=== PATIENT | female | born 1945 | race Caucasian/White ===

== ENCOUNTER 2019-09-12 23:03 | Inpatient (IN) | payer OTHER, MEDICARE ==
--- NOTE | 2019-09-12 23:15 | PDOC ---
History of Present Illness - General Chief Complaint: Shortness of Breath Stated Complaint: SOB Time Seen by Provider: 09/12/19 23:09 History Source: Patient Exam Limitations: No Limitations - History of Present Illness Initial Comments: 09/12/19 23:32 This is a 74-year-old female who comes in complaining of acute exacerbation of her COPD. Patient has a [id number] history of smoking quit 13 years ago. Patient has history of type 2 diabetes hypertension, high cholesterol. Patient states she has had some mild test numbness in her chest but no chest pain. Patient said she recently had a stress test that was normal. Patient is visiting from out of town and did not bring her nebulizer so has been unable to take her nebulizer treatments which she would normally take. Patient denies any productive cough. Patient said her cough is dry. Patient denies any fevers or chills. Patient is not currently on any steroids other than the Spiriva. Allergies: as per nursing notes Past Medical History: As per HPI Social history: Lives with family. + smoking as per HPI. No alcohol. No illicit drugs. Surgical history: Back surgery General: No fevers or chills, no weakness, no weight loss HEENT: No change in vision. No sore throat,. No ear pain CardioVascular: + chest discomfort. No shortness of breath Respiratory:+ cough, + wheezing. Gastrointestinal: no nausea, vomiting, diarrhea or constipation, No rectal bleeding Genitourinary: No dysuria, hematuria, or frequency Musculoskeletal: No joint or muscle pain or swelling Neurologic: No headache, vertigo, dizziness or loss of consciousness Psychiatric: nor depression Skin: No rashes or easy bruising Endocrine: no increased thirst or abnormal weight change Allergic: no skin or latex allergy All other systems reviewed and normal Exam: General: Well-nourished well-developed individual, no acute distress HEENT: Throat: Normal, tonsils normal, no erythema or exudate Neck: Supple, no meningeal signs, no lymphadenopathy Eyes::Pupils equal reactive and round, extraocular motion intact Chest: Nontender to palpation Cardiac: S1-S2 normal, regular rate and rhythm, no murmurs rubs or gallops Respiratory: Tachypnea with decreased breath sounds bilateral and mild expiratory wheezing in all meza Abdomen: Soft, nondistended, normal bowel sounds, there is no tenderness on palpation diffusely Extremities: Warm, dry, no cyanosis, clubbing, or edema Skin: No rashes Neuro: Alert and oriented x3, CN II - XII intact, nonfocal exam with normal strength, normal sensation, normal reflexes, normal gait, Psych: Normal mood and affect Assessment and plan: This is a 74-year-old female with acute exacerbation of her COPD. Patient does not have her medications with her as she is visiting from out of town. Patient is noted to be tachypneic with decreased breath sound and some expiratory wheezing. Patient given Solu-Medrol and a DuoNeb. Work-up initiated including CBC, comp, cardiac enzymes, UA, EKG, chest x-ray. 09/13/19 02:49 Patient's blood work was unremarkable. Patient EKG showed normal sinus rhythm no acute ST-T wave changes normal EKG Patient's BNP however was mildly elevated at 550 Patient has some improvement but still some dyspnea post DuoNeb and steroids We will admit patient overnight for additional treatment and to rule her out. Past History - Past Medical History Allergies/Adverse Reactions: Allergies Allergy/AdvReac Type Severity Reaction Status Date / Time No Known Allergies Allergy Unverified 09/12/19 23:19 Home Medications: Ambulatory Orders Albuterol 2.5/Ipratropium 0.5 [Duoneb -] 1 neb IH QID PRN 09/12/19 Albuterol Sulfate [Albuterol Sulfate Hfa] 2 puff IH PRN PRN 09/12/19 Budesonide/Formeterol Fumarate [SYMBICORT 160/4.5mcg -] 2 inh PO BID 09/12/19 Calcium Citrate [Calcitrate] 400 mg PO DAILY 09/12/19 Cholecalciferol (Vitamin D3) [Vitamin D3 -] 1,000 unit PO DAILY 09/12/19 Citalopram Hydrobromide [Citalopram HBr] 20 mg PO DAILY 09/12/19 Cyanocobalamin [Vitamin B12 -] 1,000 mcg PO DAILY 09/12/19 Ferrous Sulfate [Iron] 325 mg PO DAILY 09/12/19 Liraglutide [Victoza -] 0.6 mg SQ DAILY@0700 09/12/19 Lisinopril 20 mg PO DAILY 09/12/19 Multivitamins [Tab-A-Vit -] 1 tab PO DAILY 09/12/19 Omeprazole 20 mg PO DAILY 09/12/19 Propranolol HCl [Innopran Xl] 120 mg PO DAILY 09/12/19 Ropinirole HCl 1 mg PO BID 09/12/19 Rosuvastatin [Crestor -] 20 mg PO DAILY 09/12/19 Tiotropium [place] [Spiriva] 1 inh IH DAILY 09/12/19 metFORMIN HCL [Metformin HCl ER] 500 mg PO DAILY 09/12/19 COPD: Yes Diabetes: Yes HTN: Yes Hypercholesterolemia: Yes Other medical history: CHRONIC BACK PAIN - Psycho Social/Smoking Cessation Hx Smoking History: Former smoker Have you smoked in the past 12 months: No Information on smoking cessation initiated: No *Physical Exam - Vital Signs Last Vital Signs Temp Pulse Resp BP Pulse Ox 98 F 90 20 175/80 H 96 09/12/19 23:09 09/12/19 23:09 09/12/19 23:09 09/12/19 23:09 09/12/19 23:09 ED Treatment Course - LABORATORY CBC & Chemistry Diagram: 09/13/19 01:03 09/13/19 01:03 Discharge - Discharge Information Problems reviewed: Yes Clinical Impression/Diagnosis: COPD exacerbation Condition: Stable - Admission Yes - Follow up/Referral Referrals: ON STAFF,NOT [Primary Care Provider] - - Patient Discharge Instructions - Post Discharge Activity
[2019-09-12] MEDS ORDERED: methylPREDNISolone NA SUCC 125 MG/2 ML VIAL IVPUSH ONE (23:30)
[2019-09-12] MEDS ORDERED: ALBUTEROL SO4 2.5/IPRATROPIUM 0.5 INH SOL 3 ML VIAL.NEB. NEB ONE ×2 (23:30→23:33)
[2019-09-12] MEDS ORDERED: methylPREDNISolone NA SUCC 125 MG/2 ML VIAL ONE (23:33)
[2019-09-13 01:15] LABS: BASO % 0.9 % (0-2.0); EOS % 3.4 % (0-4.5); HEMATOCRIT 34.6 % (32.4-45.2); HEMOGLOBIN 11.6 GM/dL (10.7-15.3); LYMPH % 23.1 % (8-40); MCH 28.4 pg (25.7-33.7); MCHC 33.4 g/dl (32.0-36.0); MEAN CELL VOLUME 85.1 fl (80-96); MEAN PLT VOLUME 8.8 fl (7.5-11.1); MONO % 6.8 % (3.8-10.2); NEUT % 65.8 % (42.8-82.8); PLATELET COUNT 173 K/MM3 (134-434); RBC 4.07 M/mm3 (3.60-5.2); RDW 15.7 % (11.6-15.6); WHITE BLOOD COUNT 6.2 K/mm3 (4.0-10.0)
[2019-09-13 01:40] LABS: ALBUMIN 3.5 g/dl (3.4-5.0); BILIRUBIN,TOTAL 1.1 mg/dL (0.2-1); BLOOD UREA NITROGEN 15.4 mg/dL (7-18); CALCIUM 9.2 mg/dL (8.5-10.1); CREATININE 1.2 mg/dL (0.55-1.3); POTASSIUM 4.2 mmol/L (3.5-5.1); TOT PROT 6.4 g/dl (6.4-8.2)
[2019-09-13 05:00] LABS: PH,URINE 6.5 (5.0-8.0); URINE APPEARANCE CLEAR; URINE BILIRUBIN NEGATIVE (NEGATIVE); URINE COLOR YELLOW; URINE GLUCOSE (UA) NEGATIVE (NEGATIVE); URINE KETONE TRACE (NEGATIVE); URINE LEUK ESTERASE NEGATIVE (NEGATIVE); URINE NITRITE NEGATIVE (NEGATIVE); URINE PROTEIN NEGATIVE (NEGATIVE)
[2019-09-13 07:09] VITALS: BMI 34.9
[2019-09-13] MEDS ORDERED: PATIENT'S OWN MEDICATION (NON-FORMULARY) (Omeprazole 20 MG) PO SCH (10:00)
[2019-09-13] MEDS ORDERED: PROPRANOLOL HCL 120 MG PO SCH (10:00)
[2019-09-13] MEDS ORDERED: PT OWN MED DRAWER 7, Y5N ONE (10:56)
--- NOTE | 2019-09-13 10:59 | HP ---
CHIEF COMPLAINT: SOB PCP: Dr. Covarrubias, steffany Pul Dr. Romaine Alonso HISTORY OF PRESENT ILLNESS: This is a 74-year-old female with a medical history of COPD ( not on oxygen at home), ex- smoker,type 2 diabetes, hypertension, high cholesterol, depression, anemia,HTN,GERD,HDL, restless leg syndrome,essential tremors and obesity, who presents to ER; c/o increasing sob and constant dry cough for one day, no relief with home dose inhalers. Pt denies fever, chills, weakness, cp, palpitations, abdominal pain, N/V/D or urinary symptoms. Pt also reports chest tightness with cough, denies chest pain, diaphoresis or palpitations( recent negative stress test). Patient is visiting from out of town and did not bring her nebulizer so has been unable to take her nebulizer treatments which she would normally take. ER course was notable for: (1)BNP 550, N 138, K 4.2 (2)wbc 6.2,H/H 11.6,Hct 34.6, afebrile (3)CXR: No evidence of pneumonia Recent Travel: [place] in June 2019 PAST MEDICAL HISTORY: As mentioned above PAST SURGICAL HISTORY: Tonsillectomy as a child Back sx for ruptured disc in 1989 Lumpectomy in 2014 for spinal stenosis Social History: Smoking:ex smoker, quit over over 14 yrs ago, smoked over pack a day for 40 yrs Alcohol:None Drugs: None Allergies No Known Allergies Allergy (Unverified 09/12/19 23:19) HOME MEDICATIONS: Home Medications Medication ASA 81mg daily Instructions Recorded Albuterol 2.5/Ipratropium 0.5 1 neb IH QID PRN 09/12/19 [Duoneb -] Albuterol Sulfate [Albuterol 2 puff IH PRN PRN 09/12/19 Sulfate Hfa] Budesonide/Formeterol Fumarate 2 inh PO BID 09/12/19 [SYMBICORT 160/4.5mcg -] Calcium Citrate [Calcitrate] 400 mg PO DAILY 09/12/19 Cholecalciferol (Vitamin D3) 1,000 unit PO DAILY 09/12/19 [Vitamin D3 -] Citalopram Hydrobromide 20 mg PO DAILY 09/12/19 [Citalopram HBr] Cyanocobalamin [Vitamin B12 -] 1,000 mcg PO DAILY 09/12/19 Ferrous Sulfate [Iron] 325 mg PO DAILY 09/12/19 Liraglutide [Victoza -] 0.6 mg SQ DAILY@0700 09/12/19 Lisinopril 20 mg PO DAILY 09/12/19 Multivitamins [Tab-A-Vit -] 1 tab PO DAILY 09/12/19 Omeprazole 20 mg PO DAILY 09/12/19 Propranolol HCl [Innopran Xl] 120 mg PO DAILY 09/12/19 Ropinirole HCl 1 mg PO BID 09/12/19 Rosuvastatin [Crestor -] 20 mg PO HS 09/12/19 Tiotropium [place] [Spiriva] 1 inh IH DAILY 09/12/19 metFORMIN HCL [Metformin HCl ER]1 1000 mg bid 09/12/19 REVIEW OF SYSTEMS CONSTITUTIONAL: Absent: fever, chills, diaphoresis, generalized weakness, malaise, loss of appetite, weight change HEENT: Absent: rhinorrhea, nasal congestion, throat pain, throat swelling, difficulty swallowing, mouth swelling, ear pain, eye pain, visual changes CARDIOVASCULAR: Absent: chest pain, syncope, palpitations, irregular heart rate, lightheadedness , peripheral edema RESPIRATORY: cough cough, shortness of breath, dyspnea with exertion, Absent:orthopnea, wheezing, stridor, hemoptysis GASTROINTESTINAL: Absent: abdominal pain, abdominal distension, nausea, vomiting, diarrhea, constipation, melena, hematochezia GENITOURINARY: Absent: dysuria, frequency, urgency, hesitancy, hematuria, flank pain, genital pain MUSCULOSKELETAL: Absent: myalgia, arthralgia, joint swelling, back pain, neck pain SKIN: Absent: rash, itching, pallor HEMATOLOGIC/IMMUNOLOGIC: Absent: easy bleeding, easy bruising, lymphadenopathy, frequent infections ENDOCRINE: Absent: unexplained weight gain, unexplained weight loss, heat intolerance, cold intolerance NEUROLOGIC: Absent: headache, focal weakness or paresthesias, dizziness, unsteady gait, seizure, mental status changes, bladder or bowel incontinence PSYCHIATRIC: Absent: anxiety, depression, suicidal or homicidal ideation, hallucinations. PHYSICAL EXAMINATION Vital Signs - 24 hr 09/12/19 09/13/19 09/13/19 23:09 02:21 03:17 Temperature 98 F 98.4 F 97.6 F Pulse Rate 90 77 Pulse Rate [ 70 Radial] Respiratory 20 18 19 Rate Blood Pressure 175/80 H 161/69 Blood Pressure 152/56 L [Arm] O2 Sat by Pulse 96 96 95 Oximetry (%) 09/13/19 09/13/19 09/13/19 06:34 07:08 07:10 Temperature 98.1 F 97.6 F Pulse Rate 77 Pulse Rate [ 67 Radial] Respiratory 18 20 Rate Blood Pressure 161/69 Blood Pressure 157/58 L [Arm] O2 Sat by Pulse 95 95 Oximetry (%) 09/13/19 09:00 Temperature Pulse Rate Pulse Rate [ Radial] Respiratory 20 Rate Blood Pressure Blood Pressure [Arm] O2 Sat by Pulse 95 Oximetry (%) GENERAL: Awake, alert, and fully oriented, in no acute distress. HEAD: Normal with no signs of trauma. EYES: Pupils equal, round and reactive to light, extraocular movements intact, sclera anicteric, conjunctiva clear. No lid lag. EARS, NOSE, THROAT: Ears normal, nares patent, oropharynx clear without exudates. Moist mucous membranes. NECK: Normal range of motion, supple without lymphadenopathy, JVD, or masses. LUNGS: Breath sounds equal, clear to auscultation bilaterally. No wheezes, and no crackles. No accessory muscle use. HEART: Regular rate and rhythm, normal S1 and S2 without murmur, rub or gallop. ABDOMEN: Soft, nontender, not distended, normoactive bowel sounds, no guarding, no rebound, no masses. No hepatomegaly or splenomegaly. MUSCULOSKELETAL: Normal range of motion at all joints. No bony deformities or tenderness. No CVA tenderness. UPPER EXTREMITIES: 2+ pulses, warm, well-perfused. No cyanosis. No clubbing. No peripheral edema. LOWER EXTREMITIES: 2+ pulses, warm, well-perfused. No calf tenderness. No peripheral edema. NEUROLOGICAL: Cranial nerves II-XII intact. Normal speech. Normal gait. PSYCHIATRIC: Cooperative. Good eye contact. Appropriate mood and affect. SKIN: Warm, dry, normal turgor, no rashes or lesions noted, normal capillary refill. Laboratory Results - last 24 hr 09/13/19 09/13/19 09/13/19 01:03 01:03 01:03 WBC 6.2 RBC 4.07 Hgb 11.6 Hct 34.6 MCV 85.1 MCH 28.4 MCHC 33.4 RDW 15.7 H Plt Count 173 MPV 8.8 Absolute Neuts (auto) 4.1 Neutrophils % 65.8 Lymphocytes % 23.1 Monocytes % 6.8 Eosinophils % 3.4 Basophils % 0.9 Nucleated RBC % 0 Sodium 138 Potassium 4.2 Chloride 107 Carbon Dioxide 23 Anion Gap 8 BUN 15.4 Creatinine 1.2 Est GFR (CKD-EPI)AfAm 51.92 Est GFR (CKD-EPI)NonAf 44.80 Random Glucose 194 H Calcium 9.2 Total Bilirubin 1.1 H AST 18 ALT 23 Alkaline Phosphatase 84 Creatine Kinase 111 Troponin I 0.02 B-Natriuretic Peptide 550.9 H Total Protein 6.4 Albumin 3.5 Urine Color Urine Appearance Urine pH Ur Specific [place] Urine Protein Urine Glucose (UA) Urine Ketones Urine Blood Urine Nitrite Urine Bilirubin Urine Urobilinogen Ur Leukocyte Esterase 09/13/19 09/13/19 09/13/19 03:30 03:30 07:35 WBC RBC Hgb Hct MCV MCH MCHC RDW Plt Count MPV Absolute Neuts (auto) Neutrophils % Lymphocytes % Monocytes % Eosinophils % Basophils % Nucleated RBC % Sodium Potassium Chloride Carbon Dioxide Anion Gap BUN Creatinine Est GFR (CKD-EPI)AfAm Est GFR (CKD-EPI)NonAf Random Glucose Calcium Total Bilirubin AST ALT Alkaline Phosphatase Creatine Kinase Troponin I 0.03 B-Natriuretic Peptide Total Protein Albumin Urine Color Cancelled Yellow Urine Appearance Cancelled Clear Urine pH Cancelled 6.5 Ur Specific [place] 1.017 Urine Protein Cancelled Negative Urine Glucose (UA) Cancelled Negative Urine Ketones Cancelled Trace H Urine Blood Cancelled Negative Urine Nitrite Cancelled Negative Urine Bilirubin Cancelled Negative Urine Urobilinogen Cancelled 1.0 Ur Leukocyte Esterase Cancelled Negative ASSESSMENT/PLAN: This is a 74-year-old female with a medical history of COPD ( not on oxygen at home), ex- smoker,type 2 diabetes, hypertension, high cholesterol, depression, anemia,HTN,GERD,HDL, restless leg syndrome.essential tremors, and obesity, who presents to ER c/o increasing sob and constant dry cough, admitted with COPD exacerbation. * COPD exacerbation - sp Solumedrol and neb tx in ER - O2 jermaine stable - will cont on Solumedrol,Neb [place] and home dose inhalers - will monitor pulse ox - cxr- No acute ;boo pathology - encouraged to use IS - will hold off pul consult since pt condition improved * Chest tightness - resolved now - likely due to COPD exacerbation - trop neg - BNP 550.9 - EKG: SR, no acute ST changes - states had stress 3 months ago and echo about a year ago reported normal - cxr: No evidence of congestion or fluid overload - denies hx of CHF * HTN - will cont on home dose Lisinopril * HDL - on Crestor * Diabetes - will hold off home dose Metformin - will start on Insulin sliding scale - FS AC& HS - will check Hgb Alc * Depression - will cont on home dose Celexa * Anemia - on Fe pills * GERD - on PPI * Essential tremors -on Inderal * Restless leg leg syndrome On Requip * Obesity - weight loss encouraged * VTE : Heparin SQ and SCD's * F/E/N: Diabetic/ Heart healthy Diet Replace electrolytes as needed. Visit type - Emergency Visit Emergency Visit: Yes ED Registration Date: 09/13/19 Care time: The patient presented to the Emergency Department on the above date and was hospitalized for further evaluation of their emergent condition. - New Patient This patient is new to me today: Yes Date on this admission: 09/13/19 - Critical Care Critical Care patient: No
[2019-09-13] MEDS: rOPINIRole HCL 1 MG TABLET (FP) PO SCH ×2 (11:02→21:24)
[2019-09-13] MEDS: methylPREDNISolone NA SUCC 40 MG/1 ML VIAL IVPUSH SCH ×2 (11:02→17:06)
[2019-09-13] MEDS: CITALOPRAM HYDROBROMIDE 20 MG TABLET (FP) PO SCH (11:03)
[2019-09-13] MEDS: PANTOPRAZOLE 20 MG TABLET (FP) PO SCH (11:03)
[2019-09-13] MEDS: CHOLECALCIFEROL (VIT D3) 1,000 UNIT (25 MCG) TABLET PO SCH (11:03)
[2019-09-13] MEDS: MULTIVITAMINS (DAILY MVI) TABLET (FP) PO SCH (11:03)
[2019-09-13] MEDS: HEPARIN NA (PORCINE) 5,000 UNITS/ML 1ML VIAL SQ SCH ×2 (11:04→21:24)
[2019-09-13] MEDS: LISINOPRIL 20 MG TABLET (FP) PO SCH (11:04)
[2019-09-13] MEDS: INSULIN SLIDING SCALE (NOVOLOG) 1 VIAL SQ SCH ×3 (12:12→21:26)
[2019-09-13] MEDS: ASPIRIN 81 MG CHEWABLE TABLETS PO SCH (12:13)
[2019-09-13] MEDS: TIOTROPIUM BROMIDE 2.5 MCG (SPIRIVA) RESPIMAT INHALER IH SCH (12:13)
[2019-09-13] MEDS: BUDESONIDE/FORMETEROL FUMARATE 160/4.5 mcg INHALER IH SCH ×2 (12:13→21:23)
--- NOTE | 2019-09-13 16:00 | CON.PULM ---
Consult Consult Specialty:: PULM/CCM Referred by:: Hospitalist Reason for Consultation:: SOB - History of Present Illness Chief Complaint: SOB History of Present Illness: 74 F, COPD due to previous smoking (quit about 14 years ago), not O2 dependent , known OSAS on CPAP (she thinks 15 cm H2O), has had LDCT screening in [place] , DM, hypertension, high cholesterol, depression, anemia, HTN, GERD, HDL, restless leg syndrome, essential tremors, and obesity. Visiting for the holidays and developed progressive SOB and cough. No fever or chills. No hemoptysis or night sweats. - History Source History Provided By: Patient Limitations to Obtaining History: No Limitations - Past Medical History Pulmonary: Yes: Bronchitis, COPD, Pneumonia, Sleep Apnea. No: Asthma, Cancer, O2 Dependent, Previously Intubated, Pulmonary Embolus, Pulmonary Fibrosis ...: No - Alcohol/Substance Use Hx Alcohol Use: No - Smoking History Smoking history: Former smoker Have you smoked in the past 12 months: No Aproximately how many cigarettes per day: 20 If you are a former smoker, when did you quit?: 2004 Home Medications - Allergies Allergies/Adverse Reactions: Allergies Allergy/AdvReac Type Severity Reaction Status Date / Time No Known Allergies Allergy Unverified 09/12/19 23:19 - Home Medications Home Medications: Ambulatory Orders Albuterol 2.5/Ipratropium 0.5 [Duoneb -] 1 neb IH QID PRN 09/12/19 Albuterol Sulfate [Albuterol Sulfate Hfa] 2 puff IH PRN PRN 09/12/19 Budesonide/Formeterol Fumarate [SYMBICORT 160/4.5mcg -] 2 inh PO BID 09/12/19 Calcium Citrate [Calcitrate] 400 mg PO DAILY 09/12/19 Cholecalciferol (Vitamin D3) [Vitamin D3 -] 1,000 unit PO DAILY 09/12/19 Citalopram Hydrobromide [Citalopram HBr] 20 mg PO DAILY 09/12/19 Cyanocobalamin [Vitamin B12 -] 1,000 mcg PO DAILY 09/12/19 Ferrous Sulfate [Iron] 325 mg PO DAILY 09/12/19 Liraglutide [Victoza -] 0.6 mg SQ DAILY@0700 09/12/19 Lisinopril 20 mg PO DAILY 09/12/19 Multivitamins [Tab-A-Vit -] 1 tab PO DAILY 09/12/19 Omeprazole 20 mg PO DAILY 09/12/19 Propranolol HCl [Innopran Xl] 120 mg PO DAILY 09/12/19 Ropinirole HCl 1 mg PO BID 09/12/19 Rosuvastatin [Crestor -] 20 mg PO DAILY 09/12/19 Tiotropium [place] [Spiriva] 1 inh IH DAILY 09/12/19 metFORMIN HCL [Metformin HCl ER] 500 mg PO DAILY 09/12/19 Review of Systems - Review of Systems Constitutional: reports: Malaise. denies: Chills, Fever, Night Sweats, Unintentional Wgt. Loss Eyes: reports: No Symptoms HENT: reports: No Symptoms Neck: reports: No Symptoms Cardiovascular: reports: Shortness of Breath. denies: Chest Pain, Edema, Palpitations Respiratory: reports: Cough, Snoring, SOB, SOB on Exertion, Wheezing. denies: Hemoptysis, Orthopnea, PND Gastrointestinal: reports: No Symptoms Genitourinary: reports: No Symptoms Breasts: reports: No Symptoms Reported Musculoskeletal: reports: No Symptoms Integumentary: reports: No Symptoms Neurological: reports: No Symptoms Endocrine: reports: No Symptoms Hematology/Lymphatic: reports: No Symptoms Psychiatric: reports: No Symptoms Physical Exam Vital Sings: Vital Signs Temperature 97.8 F 09/13/19 10:30 Pulse Rate 65 09/13/19 10:30 Respiratory Rate 21 H 09/13/19 10:30 Blood Pressure 135/53 L 09/13/19 10:30 O2 Sat by Pulse Oximetry (%) 99 09/13/19 10:30 Constitutional: Yes: No Distress, Obese Eyes: Yes: Conjunctiva Clear, EOM Intact HENT: Yes: Atraumatic, Normocephalic Neck: Yes: Supple, Trachea Midline Cardiovascular: Yes: Regular Rate and Rhythm Respiratory: Yes: Cough, Diminished, On Nasal O2, Rhonchi, SOB, SOB on Exertion , Tachypnea, Wheezes. No: Accessory Muscle Use, Rales, Stridor ...Inspection: Yes: WNL ...Clubbing: No Gastrointestinal: Yes: Normal Bowel Sounds, Soft, Abdomen, Obese Renal/: Yes: WNL Musculoskeletal: Yes: WNL Extremities: Yes: WNL Edema: No Peripheral Pulses WNL: Yes Integumentary: Yes: WNL Neurological: Yes: WNL, Alert, Oriented ...Motor Strength: WNL Psychiatric: Yes: WNL, Alert, Oriented Labs: CBC, BMP 09/13/19 01:03 09/13/19 01:03 Imaging - Results Chest X-ray: Report Reviewed, Image Reviewed Problem List - Problems (1) Sleep apnea with use of continuous positive airway pressure (CPAP) Code(s): G47.30 - SLEEP APNEA, UNSPECIFIED (2) Obesity Code(s): E66.9 - OBESITY, UNSPECIFIED (3) URI (upper respiratory infection) Code(s): J06.9 - ACUTE UPPER RESPIRATORY INFECTION, UNSPECIFIED (4) Viral syndrome Code(s): B34.9 - VIRAL INFECTION, UNSPECIFIED (5) COPD exacerbation Code(s): J44.1 - CHRONIC OBSTRUCTIVE PULMONARY DISEASE W (ACUTE) EXACERBATION Assessment/Plan Medrol Symbicort O2 as needed VTE prophylaxis CPAP ordered Continue to monitor off ABX Spiriva No smoking Patient already had LDCT in [place] Will follow Thank you. Dr Gilman
[2019-09-13] MEDS: ALBUTEROL SO4 2.5/IPRATROPIUM 0.5 INH SOL 3 ML VIAL.NEB. NEB PRN (17:06)
[2019-09-13] MEDS: ROSUVASTATIN CA 20 MG TABLET (FP) PO SCH (21:24)
--- NOTE | 2019-09-13 23:24 | EKG ---
Test Reason : Blood Pressure : / mmHG Vent. Rate : 086 BPM Atrial Rate : 086 BPM P-R Int : 174 ms QRS Dur : 076 ms QT Int : 376 ms P-R-T Axes : 077 052 060 degrees QTc Int : 449 ms NORMAL SINUS RHYTHM NORMAL ECG NO PREVIOUS ECGS AVAILABLE Confirmed by JUS TREVIZO, TIA ([id number]) on 09/13/2019 11:24:35 PM Referred By: MD ZAVALA Confirmed By:TIA LUU MD
[2019-09-14] MEDS: methylPREDNISolone NA SUCC 40 MG/1 ML VIAL IVPUSH SCH ×2 (01:20→09:09)
[2019-09-14] MEDS: INSULIN SLIDING SCALE (NOVOLOG) 1 VIAL SQ SCH ×4 (06:30→21:39)
[2019-09-14] MEDS: ALBUTEROL SO4 2.5/IPRATROPIUM 0.5 INH SOL 3 ML VIAL.NEB. NEB PRN ×3 (07:39→22:36)
[2019-09-14 08:20] LABS: EOS % 0.1 % (0-4.5); HEMATOCRIT 31.1 % (32.4-45.2); HEMOGLOBIN 10.4 GM/dl (10.7-15.3); LYMPH % 7.1 % (8-40); MCH 28.7 pg (25.7-33.7); MCHC 33.4 g/dl (32.0-36.0); MEAN PLT VOLUME 9.3 fl (7.5-11.1); MONO % 1.9 % (3.8-10.2); NEUT % 90.9 % (42.8-82.8); PLATELET COUNT 150 K/MM3 (134-434); RBC 3.62 M/mm3 (3.60-5.2); RDW 14.6 % (11.6-15.6); WHITE BLOOD COUNT 6.8 K/mm3 (4.0-10.8)
[2019-09-14 08:35] LABS: ALBUMIN 3.4 g/dl (3.4-5.0); BILIRUBIN,TOTAL 0.8 mg/dl (0.2-1); CALCIUM 9.3 mg/dl (8.5-10); CREATININE 1.2 mg/dl (0.55-1.3); POTASSIUM 4.6 mmol/L (3.5-5.1); TOT PROT 5.8 g/dl (6.4-8.2)
[2019-09-14] MEDS: rOPINIRole HCL 1 MG TABLET (FP) PO SCH ×2 (09:11→21:39)
[2019-09-14] MEDS: CITALOPRAM HYDROBROMIDE 20 MG TABLET (FP) PO SCH (09:11)
[2019-09-14] MEDS: PANTOPRAZOLE 20 MG TABLET (FP) PO SCH (09:11)
[2019-09-14] MEDS: MULTIVITAMINS (DAILY MVI) TABLET (FP) PO SCH (09:12)
[2019-09-14] MEDS: BUDESONIDE/FORMETEROL FUMARATE 160/4.5 mcg INHALER IH SCH ×2 (09:12→21:39)
[2019-09-14] MEDS: HEPARIN NA (PORCINE) 5,000 UNITS/ML 1ML VIAL SQ SCH ×2 (09:12→21:39)
[2019-09-14] MEDS: ASPIRIN 81 MG CHEWABLE TABLETS PO SCH (09:12)
[2019-09-14] MEDS: TIOTROPIUM BROMIDE 2.5 MCG (SPIRIVA) RESPIMAT INHALER IH SCH (09:12)
[2019-09-14] MEDS: CHOLECALCIFEROL (VIT D3) 1,000 UNIT (25 MCG) TABLET PO SCH (09:12)
--- NOTE | 2019-09-14 09:32 | PN ---
Progress Note, Physician Chief Complaint: not in distress afebrile feeling less shortness of breath History of Present Illness: 74-year-old female with a medical history of COPD ( not on oxygen at home), ex- smoker,type 2 diabetes, hypertension, high cholesterol, depression, anemia,HTN, GERD,HDL, restless leg syndrome,essential tremors and obesity, who presents to ER; c/o increasing sob and constant dry cough for one day improving with current management. - Current Medication List Current Medications: Active Medications Albuterol/Ipratropium (Duoneb -) 1 amp NEB RQID PRN PRN Reason: SHORTNESS OF BREATH Last Admin: 09/14/19 07:39 Dose: 1 amp Aspirin (Asa -) 81 mg PO DAILY [facility] Last Admin: 09/14/19 09:12 Dose: 81 mg Budesonide/Formoterol Fumarate (Symbicort 160/4.5mcg -) 2 puff IH BID [facility] Last Admin: 09/14/19 09:12 Dose: 2 puff Cholecalciferol (Vitamin D3 -) 1,000 unit PO DAILY [facility] Last Admin: 09/14/19 09:12 Dose: 1,000 unit Citalopram Hydrobromide (Celexa -) 20 mg PO DAILY [facility] Last Admin: 09/14/19 09:11 Dose: 20 mg Heparin Sodium (Porcine) (Heparin -) 5,000 unit SQ BID [facility] Last Admin: 09/14/19 09:12 Dose: 5,000 unit Insulin Aspart (Novolog Vial Sliding Scale -) 1 vial SQ ACHS [facility]; Protocol Last Admin: 09/14/19 06:30 Dose: 4 unit Lisinopril (Prinivil) 20 mg PO DAILY [facility] Last Admin: 09/13/19 11:04 Dose: 20 mg Methylprednisolone Sodium Succinate (Solu-Medrol -) 40 mg IVPUSH Q8H-IV [facility] Last Admin: 09/14/19 09:09 Dose: 40 mg Multivitamins/Minerals/Vitamin C (Tab-A-Vit -) 1 tab PO DAILY [facility] Last Admin: 09/14/19 09:12 Dose: 1 tab Pantoprazole Sodium (Protonix -) 20 mg PO DAILY [facility] Last Admin: 09/14/19 09:11 Dose: 20 mg Propranolol HCl (Inderal [place] -) 120 mg PO DAILY [facility] Last Admin: 09/13/19 11:03 Dose: 120 mg Ropinirole HCl (Requip -) 1 mg PO BID [facility] Last Admin: 09/14/19 09:11 Dose: 1 mg Rosuvastatin Calcium (Crestor -) 20 mg PO HS [facility] Last Admin: 09/13/19 21:24 Dose: 20 mg Tiotropium [place] (Spiriva Respimat) 2 puff IH DAILY [facility] Last Admin: 09/14/19 09:12 Dose: 2 puff - Objective Vital Signs: Vital Signs Temperature 97.6 F 09/14/19 09:01 Pulse Rate 79 09/14/19 09:01 Respiratory Rate 20 09/14/19 09:01 Blood Pressure 116/41 L 09/14/19 09:01 O2 Sat by Pulse Oximetry (%) 95 09/14/19 09:00 Elderly F obese comfortable not in distress HEENT: Mm moist, no anemia NECK: No JVd No Bruit CHEST: Minimal Wheezes CVS: S1S2 R ABD: no distention, non tender EXT: Trace edema feet [employer]: AOX3 non focal Labs: CBC, BMP 09/14/19 08:00 09/14/19 08:00 Problem List - Problems (1) COPD exacerbation Assessment/Plan: Due to RTI most likely due to Viral evaluated by pulmonary cont Duoneb and IV Solu-Medrol, follow-up pulmonary consult Problems reviewed: Yes Code(s): J44.1 - CHRONIC OBSTRUCTIVE PULMONARY DISEASE W (ACUTE) EXACERBATION (2) T2DM (type 2 diabetes mellitus) Assessment/Plan: Patient has history of type 2 diabetes mellitus, on metformin hemoglobin A1c is 8.0, rising fingersticks continue with IV Solu-Medrol will decrease a dose to 20 mg continue Accu-Chek with correction dose insulin. Code(s): E11.9 - TYPE 2 DIABETES MELLITUS WITHOUT COMPLICATIONS (3) Sleep apnea with use of continuous positive airway pressure (CPAP) Assessment/Plan: Cont current setting of CPAP Problems reviewed: Yes Code(s): G47.30 - SLEEP APNEA, UNSPECIFIED (4) URI (upper respiratory infection) Code(s): J06.9 - ACUTE UPPER RESPIRATORY INFECTION, UNSPECIFIED (5) Obesity Assessment/Plan: Evaluation by nutrion weight management as out patient Problems reviewed: Yes Code(s): E66.9 - OBESITY, UNSPECIFIED (6) Depression Assessment/Plan: Cont home meds Problems reviewed: Yes Code(s): F32.9 - MAJOR DEPRESSIVE DISORDER, SINGLE EPISODE, UNSPECIFIED (7) HTN (hypertension) Assessment/Plan: Well controlled cont all home meds Problems reviewed: Yes Code(s): I10 - ESSENTIAL (PRIMARY) HYPERTENSION (8) Restless leg syndrome Assessment/Plan: Continue home medication Problems reviewed: Yes Code(s): G25.81 - RESTLESS LEGS SYNDROME
[2019-09-14] MEDS ORDERED: SODIUM CHLORIDE 1,000 ML IV SCH (09:45)
[2019-09-14] MEDS: LISINOPRIL 20 MG TABLET (FP) PO SCH (10:17)
--- NOTE | 2019-09-14 14:59 | PN ---
Progress Note (short form) - Note Progress Note: OOB to chair. Feels better. Less SOB. No acute events overnight. Intake & Output 09/11/19 09/12/19 09/13/19 09/14/19 23:59 23:59 23:59 23:59 Intake Total 850 240 Balance 850 240 Weight 220 lb 216 lb 4 oz Last Vital Signs Temp Pulse Resp BP Pulse Ox 97.9 F 73 20 119/54 L 93 L 09/14/19 13:00 09/14/19 13:00 09/14/19 13:00 09/14/19 13:00 09/14/19 11:38 Active Medications Albuterol/Ipratropium (Duoneb -) 1 amp NEB RQID PRN PRN Reason: SHORTNESS OF BREATH Last Admin: 09/14/19 07:39 Dose: 1 amp Aspirin (Asa -) 81 mg PO DAILY [facility] Last Admin: 09/14/19 09:12 Dose: 81 mg Budesonide/Formoterol Fumarate (Symbicort 160/4.5mcg -) 2 puff IH BID [facility] Last Admin: 09/14/19 09:12 Dose: 2 puff Cholecalciferol (Vitamin D3 -) 1,000 unit PO DAILY [facility] Last Admin: 09/14/19 09:12 Dose: 1,000 unit Citalopram Hydrobromide (Celexa -) 20 mg PO DAILY [facility] Last Admin: 09/14/19 09:11 Dose: 20 mg Heparin Sodium (Porcine) (Heparin -) 5,000 unit SQ BID [facility] Last Admin: 09/14/19 09:12 Dose: 5,000 unit Sodium Chloride (Normal Saline -) 1,000 mls @ 50 mls/hr IV ASDIR [facility] Last Admin: 09/14/19 10:16 Dose: 50 mls/hr Insulin Aspart (Novolog Vial Sliding Scale -) 1 vial SQ ACHS [facility]; Protocol Last Admin: 09/14/19 11:00 Dose: 12 unit Lisinopril (Prinivil) 20 mg PO DAILY [facility] Last Admin: 09/14/19 10:17 Dose: 20 mg Methylprednisolone Sodium Succinate (Solu-Medrol -) 20 mg IVPUSH Q8H-IV COLT Stop: 09/15/19 00:00 Multivitamins/Minerals/Vitamin C (Tab-A-Vit -) 1 tab PO DAILY [facility] Last Admin: 09/14/19 09:12 Dose: 1 tab Pantoprazole Sodium (Protonix -) 20 mg PO DAILY [facility] Last Admin: 09/14/19 09:11 Dose: 20 mg Prednisone (Deltasone -) 40 mg PO DAILY [facility] Propranolol HCl (Inderal La -) 120 mg PO DAILY [facility] Last Admin: 09/14/19 10:17 Dose: 120 mg Ropinirole HCl (Requip -) 1 mg PO BID [facility] Last Admin: 09/14/19 09:11 Dose: 1 mg Rosuvastatin Calcium (Crestor -) 20 mg PO HS [facility] Last Admin: 09/13/19 21:24 Dose: 20 mg Tiotropium [place] (Spiriva Respimat) 2 puff IH DAILY [facility] Last Admin: 09/14/19 09:12 Dose: 2 puff Constitutional: Yes: No Distress, Obese Eyes: Yes: Conjunctiva Clear, EOM Intact HENT: Yes: Atraumatic, Normocephalic Neck: Yes: Supple, Trachea Midline Cardiovascular: Yes: Regular Rate and Rhythm Respiratory: Yes: Cough, Diminished, Scattered Rhonchi, No wheezes appreciated. No: Accessory Muscle Use, Rales, Stridor ...Inspection: Yes: WNL ...Clubbing: No Gastrointestinal: Yes: Normal Bowel Sounds, Soft, Abdomen, Obese Renal/: Yes: WNL Musculoskeletal: Yes: WNL Extremities: Yes: WNL Edema: No Peripheral Pulses WNL: Yes Integumentary: Yes: WNL Neurological: Yes: WNL, Alert, Oriented ...Motor Strength: WNL Psychiatric: Yes: WNL, Alert, Oriented Labs: Laboratory Results - last 24 hr 09/13/19 09/13/19 09/13/19 07:35 16:51 21:24 WBC RBC Hgb Hct MCV MCH MCHC RDW Plt Count MPV Absolute Neuts (auto) Neutrophils % Lymphocytes % Monocytes % Eosinophils % Basophils % Sodium Potassium Chloride Carbon Dioxide Anion Gap BUN Creatinine Est GFR (CKD-EPI)AfAm Est GFR (CKD-EPI)NonAf POC Glucometer 280 316 Random Glucose Hemoglobin A1c % 8.0 H Calcium Total Bilirubin AST ALT Alkaline Phosphatase Total Protein Albumin 09/14/19 09/14/19 09/14/19 06:27 08:00 08:00 WBC 6.8 RBC 3.62 Hgb 10.4 L Hct 31.1 L MCV 86.0 MCH 28.7 MCHC 33.4 RDW 14.6 Plt Count 150 MPV 9.3 Absolute Neuts (auto) 6.2 Neutrophils % 90.9 H Lymphocytes % 7.1 L Monocytes % 1.9 L Eosinophils % 0.1 Basophils % 0.0 Sodium 135 L Potassium 4.6 Chloride 100 Carbon Dioxide 25 Anion Gap 10 BUN 23.0 H Creatinine 1.2 Est GFR (CKD-EPI)AfAm 51.92 Est GFR (CKD-EPI)NonAf 44.80 POC Glucometer 250 Random Glucose 271 H Hemoglobin A1c % Calcium 9.3 Total Bilirubin 0.8 AST 13 L ALT 15 Alkaline Phosphatase 57 Total Protein 5.8 L Albumin 3.4 09/14/19 10:59 WBC RBC Hgb Hct MCV MCH MCHC RDW Plt Count MPV Absolute Neuts (auto) Neutrophils % Lymphocytes % Monocytes % Eosinophils % Basophils % Sodium Potassium Chloride Carbon Dioxide Anion Gap BUN Creatinine Est GFR (CKD-EPI)AfAm Est GFR (CKD-EPI)NonAf POC Glucometer 445 Random Glucose Hemoglobin A1c % Calcium Total Bilirubin AST ALT Alkaline Phosphatase Total Protein Albumin Problem List - Problems (1) Sleep apnea with use of continuous positive airway pressure (CPAP) Code(s): G47.30 - SLEEP APNEA, UNSPECIFIED (2) Obesity Code(s): E66.9 - OBESITY, UNSPECIFIED (3) URI (upper respiratory infection) Code(s): J06.9 - ACUTE UPPER RESPIRATORY INFECTION, UNSPECIFIED (4) Viral syndrome Code(s): B34.9 - VIRAL INFECTION, UNSPECIFIED (5) COPD exacerbation Code(s): J44.1 - CHRONIC OBSTRUCTIVE PULMONARY DISEASE W (ACUTE) EXACERBATION Assessment/Plan Change to Prednisone Symbicort O2 as needed VTE prophylaxis CPAP ordered Continue to monitor off ABX Spiriva No smoking Patient already had LDCT in [facility] in [place] [facility] [place] Problem List - Problems (1) Sleep apnea with use of continuous positive airway pressure (CPAP) Code(s): G47.30 - SLEEP APNEA, UNSPECIFIED (2) Obesity Code(s): E66.9 - OBESITY, UNSPECIFIED (3) URI (upper respiratory infection) Code(s): J06.9 - ACUTE UPPER RESPIRATORY INFECTION, UNSPECIFIED (4) Viral syndrome Code(s): B34.9 - VIRAL INFECTION, UNSPECIFIED (5) COPD exacerbation Code(s): J44.1 - CHRONIC OBSTRUCTIVE PULMONARY DISEASE W (ACUTE) EXACERBATION
[2019-09-14] MEDS ORDERED: methylPREDNISolone NA SUCC 40 MG/1 ML VIAL IVPUSH SCH (18:00)
[2019-09-14] MEDS ORDERED: INSULIN (NOVOLOG) ASPART 100 UNITS/ML 10ML VIAL ONE (21:27)
[2019-09-14] MEDS: ROSUVASTATIN CA 20 MG TABLET (FP) PO SCH (21:39)
[2019-09-15 06:47] VITALS: BP 146/64; PULSE 66; TEMP 97.6
[2019-09-15] MEDS: ALBUTEROL SO4 2.5/IPRATROPIUM 0.5 INH SOL 3 ML VIAL.NEB. NEB PRN (07:30)
[2019-09-15 07:57] LABS: EOS % 0.1 % (0-4.5); HEMATOCRIT 33.7 % (32.4-45.2); HEMOGLOBIN 11.3 GM/dl (10.7-15.3); LYMPH % 8.1 % (8-40); MCH 29.1 pg (25.7-33.7); MCHC 33.4 g/dl (32.0-36.0); MEAN CELL VOLUME 87.1 fl (80-96); MONO % 4.9 % (3.8-10.2); NEUT % 86.9 % (42.8-82.8); PLATELET COUNT 188 K/MM3 (134-434); RBC 3.87 M/mm3 (3.60-5.2); RDW 14.4 % (11.6-15.6); WHITE BLOOD COUNT 9.4 K/mm3 (4.0-10.8)
[2019-09-15 08:09] LABS: CALCIUM 9.2 mg/dl (8.5-10); CREATININE 1.3 mg/dl (0.55-1.3); MAGNESIUM 1.9 mg/dL (1.8-2.4); POTASSIUM 4.5 mmol/L (3.5-5.1)
[2019-09-15] MEDS ORDERED: INSULIN (NOVOLOG) ASPART 100 UNITS/ML 10ML VIAL ONE (08:27)
[2019-09-15] MEDS: INSULIN SLIDING SCALE (NOVOLOG) 1 VIAL SQ SCH ×2 (08:32→11:57)
--- NOTE | 2019-09-15 09:14 | DS ---
Physical Exam: SUBJECTIVE: Patient seen and examined OBJECTIVE: Vital Signs Period Temp Pulse Resp BP Sys/Garcia Pulse Ox Last 24 Hr 97.6 F-98.2 F 66-88 16-20 119-155/44-64 90-98 PHYSICAL EXAM GENERAL: The patient is awake, alert, and fully oriented, in no acute distress. HEAD: Normal with no signs of trauma. EYES: PERRL, extraocular movements intact, sclera anicteric, conjunctiva clear. ENT: Ears normal, nares patent, oropharynx clear without exudates, moist mucous membranes. NECK: Trachea midline, full range of motion, supple. LUNGS: Breath sounds equal, clear to auscultation bilaterally, no wheezes, no crackles, no accessory muscle use. HEART: Regular rate and rhythm, S1, S2 without murmur, rub or gallop. ABDOMEN: Soft, nontender, nondistended, normoactive bowel sounds, no guarding, no rebound, no hepatosplenomegaly, no masses. EXTREMITIES: 2+ pulses, warm, well-perfused, no edema. NEUROLOGICAL: Cranial nerves II through XII grossly intact. Normal speech, gait not observed. PSYCH: Normal mood, normal affect. SKIN: Warm, dry, normal turgor, no rashes or lesions noted. LABS Laboratory Results - last 24 hr 09/14/19 09/14/19 09/14/19 10:59 16:44 21:21 WBC RBC Hgb Hct MCV MCH MCHC RDW Plt Count MPV Absolute Neuts (auto) Neutrophils % Lymphocytes % Monocytes % Eosinophils % Basophils % Sodium Potassium Chloride Carbon Dioxide Anion Gap BUN Creatinine Est GFR (CKD-EPI)AfAm Est GFR (CKD-EPI)NonAf POC Glucometer 445 314 290 Random Glucose Calcium Magnesium 09/15/19 09/15/19 07:00 07:00 WBC 9.4 RBC 3.87 Hgb 11.3 Hct 33.7 MCV 87.1 MCH 29.1 MCHC 33.4 RDW 14.4 Plt Count 188 MPV 9.0 Absolute Neuts (auto) 8.1 Neutrophils % 86.9 H Lymphocytes % 8.1 Monocytes % 4.9 Eosinophils % 0.1 Basophils % 0.0 Sodium 134 L Potassium 4.5 Chloride 99 Carbon Dioxide 26 Anion Gap 9 BUN 29.0 H Creatinine 1.3 Est GFR (CKD-EPI)AfAm 47.13 Est GFR (CKD-EPI)NonAf 40.67 POC Glucometer Random Glucose 243 H Calcium 9.2 Magnesium 1.9 HOSPITAL COURSE: Date of Admission:09/13/19 Date of Discharge: 09/15/19 Pre hospital course This is a 74-year-old female with a PMH significant for HTN, HLD, COPD (not on oxygen at home), SVETLANA, Type II NIDDM, depression, RLS, essential tremors and obesity. Admitted for COPD exacerbation. ER course (1)wbc 6.2,H/H 11.6,Hct 34.6, afebrile (2)CXR: no evidence of pneumonia Subsequent hospital course COPD exacerbation --likely secondary to viral syndrome --monitored off antibiotics --started on IV steroids, transitioned to PO, discharged on a taper --continued on Spiriva and Symbicort; duonebs Hypertension --BP stable, continued lisinopril Hyperlipidemia --continued Crestor Type II NIDDM --Novolog sliding scale coverage Depression --continued Celexa Restless leg syndrome --continued ropinorole Essential tremors --continued propranolol Minutes to complete discharge: 35 Discharge Summary Problems reviewed: Yes Reason For Visit: ACUTE EXAC. OF CHRONIC OBSTRUCTIVE PUL. DISEASE. Current Active Problems COPD exacerbation (Acute) Depression (Acute) HTN (hypertension) (Acute) Obesity (Acute) Restless leg syndrome (Acute) Sleep apnea with use of continuous positive airway pressure (CPAP) (Acute) T2DM (type 2 diabetes mellitus) (Acute) URI (upper respiratory infection) (Acute) Viral syndrome (Acute) Condition: Stable - Instructions Referrals: ON STAFF,NOT [Primary Care Provider] - - Home Medications Comprehensive Discharge Medication List: Ambulatory Orders Albuterol 2.5/Ipratropium 0.5 [Duoneb -] 1 neb IH QID PRN 09/12/19 Albuterol Sulfate [Albuterol Sulfate Hfa] 2 puff IH PRN PRN 09/12/19 Budesonide/Formeterol Fumarate [SYMBICORT 160/4.5mcg -] 2 inh PO BID 09/12/19 Calcium Citrate [Calcitrate] 400 mg PO DAILY 09/12/19 Cholecalciferol (Vitamin D3) [Vitamin D3 -] 1,000 unit PO DAILY 09/12/19 Citalopram Hydrobromide [Citalopram HBr] 20 mg PO DAILY 09/12/19 Cyanocobalamin [Vitamin B12 -] 1,000 mcg PO DAILY 09/12/19 Ferrous Sulfate [Iron] 325 mg PO DAILY 09/12/19 Liraglutide [Victoza -] 0.6 mg SQ DAILY@0700 09/12/19 Lisinopril 20 mg PO DAILY 09/12/19 Multivitamins [Tab-A-Vit -] 1 tab PO DAILY 09/12/19 Omeprazole 20 mg PO DAILY 09/12/19 Propranolol HCl [Innopran Xl] 120 mg PO DAILY 09/12/19 Ropinirole HCl 1 mg PO BID 09/12/19 Rosuvastatin [Crestor -] 20 mg PO DAILY 09/12/19 Tiotropium [place] [Spiriva] 1 inh IH DAILY 09/12/19 metFORMIN HCL [Metformin HCl ER] 500 mg PO DAILY 09/12/19 This patient is new to me today: Yes Date on this admission: 09/15/19 Emergency Visit: Yes ED Registration Date: 09/13/19 Care time: The patient presented to the Emergency Department on the above date and was hospitalized for further evaluation of their emergent condition. Critical Care patient: No - Discharge Referral Referred to [facility] No
[2019-09-15] MEDS ORDERED: PT OWN MED DRAWER 7, Y5N ONE (09:56)
[2019-09-15] MEDS ORDERED: predniSONE 20 MG TABLET (UD) PO SCH (10:00)
[2019-09-15] MEDS: ASPIRIN 81 MG CHEWABLE TABLETS PO SCH (10:03)
[2019-09-15] MEDS: CITALOPRAM HYDROBROMIDE 20 MG TABLET (FP) PO SCH (10:03)
[2019-09-15] MEDS: LISINOPRIL 20 MG TABLET (FP) PO SCH (10:04)
[2019-09-15] MEDS: PANTOPRAZOLE 20 MG TABLET (FP) PO SCH (10:04)
[2019-09-15] MEDS: rOPINIRole HCL 1 MG TABLET (FP) PO SCH (10:04)
[2019-09-15] MEDS: CHOLECALCIFEROL (VIT D3) 1,000 UNIT (25 MCG) TABLET PO SCH (10:05)
[2019-09-15] MEDS: MULTIVITAMINS (DAILY MVI) TABLET (FP) PO SCH (10:05)
[2019-09-15] MEDS: BUDESONIDE/FORMETEROL FUMARATE 160/4.5 mcg INHALER IH SCH (10:05)
[2019-09-15] MEDS: TIOTROPIUM BROMIDE 2.5 MCG (SPIRIVA) RESPIMAT INHALER IH SCH (10:06)
--- NOTE | 2019-09-15 12:45 | PN ---
Progress Note (short form) - Note Progress Note: PULMONARY READY TO GO HOME VSS/AFEBRILE Constitutional: Yes: No Distress, Obese Eyes: Yes: Conjunctiva Clear, EOM Intact HENT: Yes: Atraumatic, Normocephalic Neck: Yes: Supple, Trachea Midline Cardiovascular: Yes: Regular Rate and Rhythm Respiratory: Yes: Mild end exp wheeze ...Inspection: Yes: WNL ...Clubbing: No Gastrointestinal: Yes: Normal Bowel Sounds, Soft, Abdomen, Obese Renal/: Yes: WNL Musculoskeletal: Yes: WNL Extremities: Yes: WNL Edema: No Peripheral Pulses WNL: Yes Integumentary: Yes: WNL Neurological: Yes: WNL, Alert, Oriented ...Motor Strength: WNL Psychiatric: Yes: WNL, Alert, Oriented Labs: noted Problem List - Problems (1) Sleep apnea with use of continuous positive airway pressure (CPAP) Code(s): G47.30 - SLEEP APNEA, UNSPECIFIED (2) Obesity Code(s): E66.9 - OBESITY, UNSPECIFIED (3) URI (upper respiratory infection) Code(s): J06.9 - ACUTE UPPER RESPIRATORY INFECTION, UNSPECIFIED (4) Viral syndrome Code(s): B34.9 - VIRAL INFECTION, UNSPECIFIED (5) COPD exacerbation Code(s): J44.1 - CHRONIC OBSTRUCTIVE PULMONARY DISEASE W (ACUTE) EXACERBATION Assessment/Plan Prednisone taper as outpatient Symbicort O2 as needed VTE prophylaxis CPAP Spiriva No smoking Patient already had LDCT in [place] Agree with discharge Filemon MARTINO MD
== END 2019-09-15 12:46 | disposition home or self-care (01) | DRG 192 ==
LOC: FER 23:03 → FM/S 09-13 03:17
PROVIDERS: ADMIT Internal Medicine; ATTEND Nurse Practitioner Acute Care
DX: J44.1 Chronic obstructive pulmonary disease with (acute) exacerbation (principal); E11.9 Type 2 diabetes mellitus without complications; E78.5 Hyperlipidemia, unspecified; I10 Essential (primary) hypertension; K21.9 Gastro-esophageal reflux disease without esophagitis; D64.9 Anemia, unspecified; F32.9 Major depressive disorder, single episode, unspecified; G25.81 Restless legs syndrome; E66.9 Obesity, unspecified; Z68.34 Body mass index [BMI] 34.0-34.9, adult; G47.33 Obstructive sleep apnea (adult) (pediatric); J06.9 Acute upper respiratory infection, unspecified; B34.9 Viral infection, unspecified
CPT/HCPCS: 36415; 71045-TC-FY; 80048; 80053; 81003; 82550; 82962; 83036; 83735; 83880; 84484; 85025; 87086; 93005; 94640; 94660; 94761; 99283-25; J1644; J7030